=== PATIENT | male | born 1980 | race Caucasian/White ===

== ENCOUNTER 2021-05-08 09:38 | Emergency (ER) | payer OTHER ==
[~2021-05-08] VITALS: Ht 175.3 cm; Wt 113.6 kg
[2021-05-08 10:01] VITALS: TEMP 97.1
[2021-05-08 11:35] VITALS: BP 138/64; PULSE 85
== END 2021-05-08 11:51 | disposition home or self-care (01) ==
LOC: COL.ER 09:38
DX: U07.1 COVID-19 (principal)